=== PATIENT | male | born 1995 | race Caucasian/White ===

== ENCOUNTER 2017-08-10 08:15 | Emergency (ER) | payer OTHER ==
[2017-08-10 08:25] VITALS: BP 113/72; PULSE 62; RESP 16; TEMP 98.1; O2SAT 98
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
== END 2017-08-10 09:06 | disposition home or self-care (01) ==
DX: L03.115 Cellulitis of right lower limb (principal)

== ENCOUNTER 2017-08-13 09:59 | Inpatient (IN) | payer OTHER ==
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
[2017-08-13 11:22] LABS: PLATELET COUNT 211 10^3/uL (150-400)
[2017-08-13] MEDS ORDERED: VANCOMYCIN 1.25 GM in NS 250 ML IV ONE (12:30)
[2017-08-13] MEDS ORDERED: IBUPROFEN 200 MG TAB PO PRN (13:14)
[2017-08-13] MEDS ORDERED: ONDANSETRON 4 MG/2 ML VIAL IVP PRN (13:15)
[2017-08-13] MEDS ORDERED: ONDANSETRON DISINTEGRATING 4 MG TAB PO PRN (13:15)
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
[2017-08-13] MEDS: ACETAMINOPHEN 500 MG TAB PO SCH ×2 (14:31→20:47)
--- NOTE | 2017-08-13 16:50 | PDMN ---
Medical Necessity Medical necessity: GRG wound and skin infection vs M70 cellulitis : concerning for MRSA infection- IV abx and further monitoring needed anticipate > 2 midnights
[2017-08-13] MEDS: VANCOMYCIN HCL/NORMAL SALINE 250 ML IV SCH (20:47)
[2017-08-14] MEDS ORDERED: VANCOMYCIN 1.25 GM in NS 250 ML IV SCH
[2017-08-14] MEDS: ACETAMINOPHEN 500 MG TAB PO SCH ×3 (05:48→22:10)
[2017-08-14] MEDS: VANCOMYCIN HCL/NORMAL SALINE 250 ML IV SCH (05:48)
--- NOTE | 2017-08-14 09:26 | ASMTCMCOM ---
CM Note CM Note Notes: Patient admitted for likely MRSA infection of his bilateral lower extremeties. He is being treated with IV antibiotics. He is normally healthy and independent in ADLs. I don't anticipate any discharge needs; per H&P, he may benefit from outpatient Infectious Disease follow-up. If any Case Management needs arise, we will assist. Date Signed: 08/14/2017 09:26 AM Electronically Signed By:Sheba Palomo RN
[2017-08-14] MEDS ORDERED: ceFAZolin 2 GM/DEXTROSE 100 ML IV SCH (09:39)
[2017-08-14] MEDS: ceFAZolin 2 GM/SWFI 2 GM/20 ML SYR IVP SCH ×2 (09:55→14:12)
--- NOTE | 2017-08-14 12:32 | HOSPPROG ---
Hospitalist Progress Note Assessment/Plan: 22 yo M w MSSA cellulitis cellulitis: change to cefazolin add'l 24 hours given failure of outpt abx recurrent skin infections: ID to see proph: ambulatory pain: ambulatory dispo: inpt Subjective: case d/w dr hughes. afebrile Objective: Vital Signs Temp Pulse Resp BP Pulse Ox 36.4 C 49 L 16 99/49 L 97 08/14/17 07:15 08/14/17 07:15 08/14/17 07:15 08/14/17 07:15 08/14/17 07:15 08/13/17 08/14/17 08/15/17 05:59 05:59 05:59 Intake Total 850 288 Balance 850 288 - Physical Exam Constitutional: no apparent distress, appears nourished Eyes: PERRL, anicteric sclera Ears, Nose, Mouth, Throat: moist mucous membranes, hearing normal Cardiovascular: regular rate and rhythym, no murmur, rub, or gallop Respiratory: no respiratory distress, no rales or rhonchi Gastrointestinal: normoactive bowel sounds, soft, non-tender abdomen Genitourinary: no bladder fullness Skin: warm, normal color Musculoskeletal: full muscle strength ICD10 Worksheet Patient Problems: Problems Problem Status Onset Cellulitis of right leg without foot Acute
[2017-08-14 16:38] VITALS: RESP 16
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
[2017-08-14 18:04] LABS: HIV TYPE 1 AND 2 NEGATIVE (NEGATIVE)
[2017-08-14 23:41] VITALS: O2SAT 96
[2017-08-15] MEDS: ACETAMINOPHEN 500 MG TAB PO SCH ×2 (05:47→15:47)
[2017-08-15 07:12] VITALS: BP 102/63; PULSE 49; TEMP 98.2
--- NOTE | 2017-08-15 12:59 | PDDCSUM ---
Discharge Summary Discharge Summary: 22 yo male admitted with recurrent infection. See below for details. #B LE Furuncles and cellulitis, Non MRSA -treated with Cefazolin IV -Transition to Bactrim DS PO BID x 8 more days -F/u with Dr. Rashid in one week #recurrent Furuncles and cellulitis Exam: NAD AAOX3 RRR NORMAL WORK OF BREATHING MULTIPLE FURUNCLES MOSTLY ON RIGHT LEG BUT LEFT LEG/KNEE WELL MEDS: SEE MED REC F/U: PER ABOVE TOTAL TIME SPENT ON D/C IS 35 MINS
--- NOTE | 2017-08-15 14:08 | ASMTCMCOM ---
CM Note CM Note Notes: Pt medically stable for d/c on oral antibiotics and follow up with ID. No CM d/c needs identified. Date Signed: 08/15/2017 02:08 PM Electronically Signed By:ANNY Barbour
--- NOTE | 2017-08-15 15:05 | PCMIDPN ---
Assessment/Plan: Assessment: Multiple MSSA skin abscesses. Isolate is resistant to sulfa. Will switch oral Bactrim for oral Keflex 500 mg p.o. four times daily. Follow-up with Dr. Rashid in office in approximately 1 week time. Discussion about etiology of his recurrent Staph aureus disease. Plan: 1. Agree with oral Keflex 500 mg p.o. four times daily. Continue the same stop date. 2. Follow up with Dr. Rashid the clinic. Subjective: Patient is resting comfortably in his hospital bed. He has no new complaints. Family in the room. No fevers or chills. No new lesions. Objective: Cefazolin # 2 Vital Signs Temp Pulse Resp BP Pulse Ox 36.8 C 49 L 16 102/63 96 08/15/17 07:10 08/15/17 07:10 08/15/17 07:10 08/15/17 07:10 08/15/17 07:10 08/14/17 08/15/17 08/16/17 05:59 05:59 05:59 Intake Total 850 1288 Balance 850 1288 ESR 7 MM/HR (0-15) 08/13/17 10:36 - Physical Exam General Appearance: WD/WN, alert, no apparent distress, non-toxic Skin: normal color, warm/dry, rash Neuro/Psych: alert, normal mood/affect, oriented x 3 ICD10 Worksheet Patient Problems: Problems Problem Status Onset Cellulitis of right leg without foot Acute
== END 2017-08-15 15:47 | disposition home or self-care (01) | DRG 603 ==
LOC: F3N 13:10
PROVIDERS: ADMIT Internal Medicine; ATTEND Internal Medicine
DX: L03.115 Cellulitis of right lower limb (principal); L03.116 Cellulitis of left lower limb; L02.425 Furuncle of right lower limb; L02.426 Furuncle of left lower limb; B95.7 Other staphylococcus as the cause of diseases classified elsewhere; Z86.19 Personal history of other infectious and parasitic diseases; Z88.0 Allergy status to penicillin
CPT/HCPCS: J0690; J3370